=== PATIENT | female | born 1990 | race Caucasian/White ===

== ENCOUNTER 2017-12-04 18:30 | Emergency (ER) | payer OTHER ==
--- NOTE | 2017-12-04 20:11 | EDM.PDOC ---
ED HPI GENERAL MEDICAL PROBLEM - General Chief Complaint: General Stated Complaint: PT DIZZY Time Seen by Provider: 12/04/17 20:06 Source of Information: Reports: Patient History Limitations: Reports: No Limitations - History of Present Illness INITIAL COMMENTS - FREE TEXT/NARRATIVE: HISTORY AND PHYSICAL: []27-year-old female presenting with concerns over dizziness 2 days History of Present Illness: []Further discussion reveals some coughing runny nose she denies any other symptoms Review of Systems: As per history of present illness and below otherwise all systems reviewed and negative. Past medical history: As per history of present illness and as reviewed below otherwise noncontributory. Surgical history: As per history of present illness and as reviewed below otherwise noncontributory. Social history: No reported history of drug or alcohol abuse. Family history: As per history of present illness and as reviewed below otherwise noncontributory. Physical exam: Alert and oriented female answering questions appropriately speaking in full sentences without any shortness of breath HEENT: Atraumatic, normocehpalic, pupils reactive, negative for conjunctival pallor or scleral icterus, mucous membranes moist, throat clear, neck supple, nontender, trachea midline. Tympanic membrane on the left is bulging pustular material present Lungs: Clear to auscultation, breath sounds equal bilaterally, chest non tender. Shallow breath sounds were noted Heart: S1S2, regular, negative for clicks, rubs, or JVD. Abdomen: Soft, nondistended, nontender. Negative for masses or hepatossplenmegaly. Negative for costovertebral tenderness. Pelvis: Stable nontender. Genitourinary: Deferred. Rectal: Deferred Extremities: Atraumatic, negative for cords or calf pain. Neurovascular unremarkable. Neuro: Awake, alert, oriented. Cranial nerves II through XII unremarkable. Cerebellum unremarkable. Motor and sensory unremarkable throughout. Exam nonfocal. Chest chest with the patient that she does not have influenza Diagnostics: [Influenza] Therapeutics: [] Impression: [Otitis media on right Vertigo] Plan: [Amoxicillin Antivert Tylenol alternating with Motrin as needed for discomfort as discussed] Definitive disposition and diagnosis as appropriate pending reevaluation and review of above. Onset: Gradual Duration: Day(s): (HISTORY AND PHYSICAL:) Location: Reports: Head no pain Pain Score (Numeric/FACES): 0 - Related Data Allergies Allergy/AdvReac Type Severity Reaction Status Date / Time ciprofloxacin [From Cipro] Allergy Hives Verified 12/04/17 19:32 Home Meds: Home Meds Amoxicillin 875 mg PO BID #14 tab 12/04/17 [Rx] Meclizine [Antivert] 25 mg PO TID PRN #21 tab 12/04/17 [Rx] ED ROS GENERAL - Review of Systems Review Of Systems: ROS reveals no pertinent complaints other than HPI. ED EXAM, GENERAL - Physical Exam Exam: See Below (See dictation) Course - Vital Signs Last Recorded V/S: Last Vital Signs Temp 36.7 C 12/04/17 19:32 Pulse 83 12/04/17 19:32 Resp 18 12/04/17 19:32 BP 137/83 12/04/17 19:32 Pulse Ox 98 12/04/17 19:32 Departure - Departure Time of Disposition: 20:57 Disposition: Home, Self-Care 01 Condition: Good Clinical Impression: Vertigo Otitis media Qualifiers: Otitis media type: unspecified Chronicity: acute Qualified Code(s): H66.90 - Otitis media, unspecified, unspecified ear - Discharge Information Prescriptions: Amoxicillin 875 mg PO BID #14 tab Meclizine [Antivert] 25 mg PO TID PRN #21 tab PRN Reason: Dizziness Referrals: PCP,None [Primary Care Provider] - Forms: ED Department Discharge Additional Instructions: The following information is given to patients seen in the emergency department who are being discharged to home. This information is to outline your options for follow-up care. We provide all patients seen in our emergency department with a follow-up referral. The need for follow-up, as well as the timing and circumstances, are variable depending upon the specifics of your emergency department visit. If you don't have a primary care physician on staff, we will provide you with a referral. We always advise you to contact your personal physician following an emergency department visit to inform them of the circumstance of the visit and for follow-up with them and/or the need for any referrals to a consulting specialist. The emergency department will also refer you to a specialist when appropriate. This referral assures that you have the opportunity for followup care with a specialist. All of these measure are taken in an effort to provide you with optimal care, which includes your followup. Under all circumstances we always encourage you to contact your private physician who remains a resource for coordinating your care. When calling for followup care, please make the office aware that this follow-up is from your recent emergency room visit. If for any reason you are refused follow-up, please contact the [facility] emergency department at and asked to speak to the emergency department charge nurse. Then found to have ear infection and vertigo EScription sent to [place] [facility] Tylenol alternating with Motrin as needed for discomfort and fever
== END 2017-12-04 21:12 | disposition home or self-care (01) ==
LOC: MW.ED 18:30
DX: R42 Dizziness and giddiness (principal); H66.91 Otitis media, unspecified, right ear; Z88.1 Allergy status to other antibiotic agents
CPT/HCPCS: 87804; 99282; 99283

== ENCOUNTER 2019-12-28 12:00 | Inpatient (IN) | payer OTHER ==
[2019-12-28] MEDS: Lactated Ringers 1,000 ML IV SCH (17:59)
[2019-12-28] MEDS ORDERED: Methylergonovine 0.2 MG/1 ML Amp IM PRN (18:18)
[2019-12-28] MEDS ORDERED: Carboprost Tromethamine 250 MCG/1 ML Amp IM PRN (18:18)
[2019-12-28] MEDS ORDERED: Sodium Chloride 0.9% 2.5 ML Syringe FLUSH PRN (18:18)
[2019-12-28] MEDS ORDERED: Water For Irrigation,Sterile 1,000 ML Container IRR PRN (18:18)
[2019-12-28] MEDS ORDERED: Misoprostol 25 MCG (1/4 of 100 MCG) Tab VAG PRN ×2 (18:18)
[2019-12-28] MEDS ORDERED: Sodium Chloride 0.9% 10 ML SDV IV PRN (18:18)
[2019-12-28] MEDS ORDERED: Lidocaine 1% 50 ML MDV INJECT PRN (18:18)
[2019-12-28] MEDS ORDERED: Nalbuphine 10 MG/1 ML Vial IVPUSH PRN (18:18)
[2019-12-28] MEDS ORDERED: Misoprostol 200 MCG Tab PO PRN (18:18)
[2019-12-28] MEDS ORDERED: Sodium Chloride 0.9% 10 ML Syringe FLUSH PRN (18:18)
[2019-12-28] MEDS ORDERED: Tranexamic Acid 1,000 MG in Sodium Chloride 0.9% 100 ML IV PRN (18:18)
[2019-12-28] MEDS ORDERED: Terbutaline 1 MG/ML SDV SUBCUT PRN (18:18)
[2019-12-28] MEDS ORDERED: Oxytocin/0.9 % Sodium Chloride 30 UNIT/500 ML BAG IV SCH ×2 (18:30)
[2019-12-28 18:41] LABS: BLOOD UREA NITROGEN,BUN 9 mg/dL (7.0-18.0); CARBON DIOXIDE,CO2 20.5 mmol/L (21.0-32.0); CHLORIDE,CL 103 mmol/L (98-107); GLUCOSE RANDOM 127 mg/dL (74-106); POTASSIUM,K 3.9 mmol/L (3.5-5.1); SODIUM,NA 138 mmol/L (136-145)
[2019-12-29] MEDS: Butorphanol 1 MG/ML SDV IVPUSH PRN ×3 (00:28→03:55)
[2019-12-29] MEDS ORDERED: Ropivacaine HCl/PF 100 ML ONE (06:05)
[2019-12-29] MEDS ORDERED: fentaNYL 100 MCG/2 ML SDV ONE ×3 (06:05→12:23)
--- NOTE | 2019-12-29 06:26 | PCM.PREANE ---
Preanesthetic Assessment - Anesthesia/Transfusion/Family Hx Anesthesia History: No Prior Anesthesia Family History of Anesthesia Reaction: No - Physical Assessment NPO Status Date: 12/28/19 NPO Status Time: 17:00 Height: 1.68 m Weight: 132.562 kg ASA Class: 2 - Lab Values: Laboratory Last Values WBC 10.06 K/uL (4.0-11.0) 12/28/19 17:59 RBC 4.04 M/uL (4.30-5.90) L 12/28/19 17:59 Hgb 13.0 g/dL (12.0-16.0) 12/28/19 17:59 Hct 38.3 % (36.0-46.0) 12/28/19 17:59 MCV 94.8 fL (80.0-98.0) 12/28/19 17:59 MCH 32.2 pg (27.0-32.0) H 12/28/19 17:59 MCHC 33.9 g/dL (31.0-37.0) 12/28/19 17:59 RDW Std Deviation 43.1 fl (28.0-62.0) 12/28/19 17:59 RDW Coeff of Melanie 13 % (11.0-15.0) 12/28/19 17:59 Plt Count 246 K/uL (150-400) 12/28/19 17:59 MPV 10.70 fL (7.40-12.00) 12/28/19 17:59 Nucleated RBC % 0.0 /100WBC 12/28/19 17:59 Nucleated RBCs # 0 K/uL 12/28/19 17:59 Sodium 138 mmol/L (136-145) 12/28/19 17:59 Potassium 3.9 mmol/L (3.5-5.1) 12/28/19 17:59 Chloride 103 mmol/L (98-107) 12/28/19 17:59 Carbon Dioxide 20.5 mmol/L (21.0-32.0) L 12/28/19 17:59 BUN 9 mg/dL (7.0-18.0) 12/28/19 17:59 Creatinine 0.5 mg/dL (0.6-1.0) L 12/28/19 17:59 Est Cr Clr Drug Dosing 155.41 mL/min 12/28/19 17:59 Estimated GFR (MDRD) > 60.0 ml/min 12/28/19 17:59 Glucose 127 mg/dL (74-106) H 12/28/19 17:59 Uric Acid 3.2 mg/dL (2.6-7.2) 12/28/19 17:59 Calcium 9.1 mg/dL (8.5-10.1) 12/28/19 17:59 Total Bilirubin 0.2 mg/dL (0.2-1.0) 12/28/19 17:59 AST 18 IU/L (15-37) 12/28/19 17:59 ALT 21 IU/L (14-63) 12/28/19 17:59 Alkaline Phosphatase 129 U/L (46-116) H 12/28/19 17:59 Total Protein 7.3 g/dL (6.4-8.2) 12/28/19 17:59 Albumin 2.8 g/dL (3.4-5.0) L 12/28/19 17:59 Globulin 4.5 g/dL (2.6-4.0) H 12/28/19 17:59 Albumin/Globulin Ratio 0.6 (0.9-1.6) L 12/28/19 17:59 Ur Random Creatinine 128.9 mg/dL 12/29/19 00:30 U Random Total Protein 21.7 mg/dL (<11.9) H 12/29/19 00:30 Protein/Creatinin Ratio 0.2 12/29/19 00:30 Blood Type A POSITIVE 12/28/19 17:59 Antibody Screen NEGATIVE 12/28/19 17:59 - Allergies Allergies/Adverse Reactions: Allergies Allergy/AdvReac Type Severity Reaction Status Date / Time ciprofloxacin [From Cipro] Allergy Hives Verified 12/04/17 19:32 - Acknowledgements Anesthesia Type Planned: Epidural Pt an Appropriate Candidate for the Planned Anesthesia: Yes Alternatives and Risks of Anesthesia Discussed w Pt/Guardian: Yes Pt/Guardian Understands and Agrees with Anesthesia Plan: Yes PreAnesthesia Questionnaire HEENT History: Reports: None Cardiovascular History: Reports: None Respiratory History: Reports: None Gastrointestinal History: Reports: None Genitourinary History: Reports: None Musculoskeletal History: Reports: None Neurological History: Reports: None Psychiatric History: Reports: None Endocrine/Metabolic History: Reports: None Hematologic History: Reports: None Immunologic History: Reports: None Oncologic (Cancer) History: Reports: None Dermatologic History: Reports: None - Infectious Disease History Infectious Disease History: Reports: None - SUBSTANCE USE Tobacco Use Within Last Twelve Months: No Recreational Drug Use History: No - HOME MEDS Home Medications: Home Meds Amoxicillin 875 mg PO BID #14 tab 12/04/17 [Rx] Meclizine [Antivert] 25 mg PO TID PRN #21 tab 12/04/17 [Rx] - CURRENT (IN HOUSE) MEDS Current Meds: Current Medications Butorphanol Tartrate (Stadol) 1 mg IVPUSH Q1H PRN PRN Reason: Pain Last Admin: 12/29/19 03:55 Dose: 1 mg Carboprost Tromethamine (Hemabate Ds) 250 mcg IM ASDIRECTED PRN PRN Reason: Post Hemorrhage Lactated Ringer's (Ringers, Lactated) 1,000 mls @ 150 mls/hr IV ASDIRECTED KRISTEN Last Admin: 12/28/19 17:59 Dose: 150 mls/hr Oxytocin/Sodium Chloride (Oxytocin 30 Unit/500 Ml-Ns) 30 unit in 500 mls @ 999 mls/hr IV TITRATE KRISTEN Oxytocin/Sodium Chloride (Oxytocin 30 Unit/500 Ml-Ns) 30 unit in 500 mls @ 2 mls/hr IV TITRATE KRISTEN; Protocol Tranexamic Acid 1,000 mg/ (Sodium Chloride) 110 mls @ 660 mls/hr IV ONETIME PRN PRN Reason: Bleeding Lidocaine HCl (Xylocaine 1%) 50 ml INJECT ONETIME PRN PRN Reason: Laceration repair Methylergonovine Maleate (Methergine) 0.2 mg IM ASDIRECTED PRN PRN Reason: Post Hemorrhage Misoprostol (Cytotec) 200 mcg PO ONETIME PRN PRN Reason: Post Hemorrhage Misoprostol (Cytotec) 25 mcg VAG ONETIME PRN PRN Reason: Cervical Ripening Last Admin: 12/28/19 19:33 Dose: 25 mcg Misoprostol (Cytotec) 25 mcg VAG Q4H PRN PRN Reason: Cervical Ripening Nalbuphine HCl (Nubain) 10 mg IVPUSH Q1H PRN PRN Reason: Pain (severe 7-10) Sodium Chloride (Saline Flush) 10 ml FLUSH ASDIRECTED PRN PRN Reason: Keep Vein Open Sodium Chloride (Saline Flush) 2.5 ml FLUSH ASDIRECTED PRN PRN Reason: Keep Vein Open Sodium Chloride (Normal Saline) 10 ml IV ASDIRECTED PRN PRN Reason: IV Use Sterile Water (Sterile Water For Irrigation) 1,000 ml IRR ASDIRECTED PRN PRN Reason: delivery Terbutaline Sulfate (Brethine) 0.25 mg SUBCUT ASDIRECTED PRN PRN Reason: Tacysystole
--- NOTE | 2019-12-29 06:29 | PCM.PRNOTE ---
- Free Text/Narrative Note: Anes Note Patient requests epidural for L&D. Sitting position, Level L3-L4 midline apporach. Sterile technique. Chloraprep scrub to lumbar area. Sterile fenestrated drape applied. Epidural space easily achieved single attempt with ease using EVERT technique. EVERT at 5 cm. Cath threaded 5 cm with ease. Cath secured at skin using sterile clear adhesive dressing. Test 0615 3 cc 1.5% lido with epi negative. 0618 Load 10 cc 0.2% ropivicaine with 1 mcg cc fentanyl in slow divided doses. 0623 Pump started using 90 cc same solution. Rate is 8 cc hr with 6 cc q 20 min prn bolus. Augusto well. Time with patient [id number] Anderson Mtoa LOCOMOTIVE SUPERVISOR
[2019-12-29] MEDS: Lactated Ringers 1,000 ML IV SCH ×4 (06:31→21:22)
[2019-12-29] MEDS ORDERED: Bupivacaine 0.5% 10 ML SDV ONE (11:41)
[2019-12-29] MEDS ORDERED: Terbutaline 1 MG/ML SDV SUBCUT ONE (11:42)
[2019-12-29] MEDS ORDERED: ceFAZolin 2 GM in Premix Bag 1 BAG IV ONE (11:42)
[2019-12-29] MEDS ORDERED: ceFAZolin 1 GM Vial ONE (11:50)
[2019-12-29] MEDS ORDERED: Ondansetron 4 MG/2 ML SDV ONE (11:50)
[2019-12-29] MEDS ORDERED: Oxytocin 10 Units/1 ML SDV ONE (11:50)
[2019-12-29] MEDS ORDERED: Sodium Chloride 0.9% 20 ML ONE (11:50)
[2019-12-29] MEDS ORDERED: Midazolam 1 MG/ML 2 ML SDV ONE (12:00)
[2019-12-29] MEDS ORDERED: Morphine PF 10 MG/10 ML SDV ONE (12:03)
[2019-12-29] MEDS ORDERED: fentaNYL 100 MCG/2 ML SDV IVPUSH PRN (12:04)
[2019-12-29] MEDS ORDERED: Acetaminophen/oxyCODONE 325-5 MG Tab PO PRN ×2 (12:04→12:51)
[2019-12-29] MEDS ORDERED: Nalbuphine 10 MG/1 ML Vial IVPUSH PRN (12:04)
[2019-12-29] MEDS ORDERED: Octyl 2-Cyanoacrylate 1 Tube ONE (12:14)
[2019-12-29] MEDS ORDERED: Tranexamic Acid 1,000 MG in Sodium Chloride 0.9% 100 ML IV PRN (12:51)
[2019-12-29] MEDS ORDERED: Lanolin 100% Cream 7 GM Tube TOP PRN (12:51)
[2019-12-29] MEDS ORDERED: Misoprostol 200 MCG Tab RECTAL PRN (12:51)
[2019-12-29] MEDS ORDERED: Bisacodyl 10 MG Supp RECTAL PRN (12:51)
[2019-12-29] MEDS ORDERED: diphenhydrAMINE 50 MG/ML SDV IVPUSH PRN (12:51)
[2019-12-29] MEDS ORDERED: Ondansetron 4 MG/2 ML SDV IVPUSH PRN (12:51)
[2019-12-29] MEDS ORDERED: Oxytocin 10 Units/1 ML SDV IM PRN (12:51)
--- NOTE | 2019-12-29 12:56 | PCM.OPNOTE ---
- General Post-Op/Procedure Note Date of Surgery/Procedure: 12/29/19 Operative Procedure(s): primary low transverse Findings: Liveborn female 9/9 weight 3170 grams, normal pelvis, body cord noted.direct OP position Pre Op Diagnosis: 39 4/7 weeks, gestational hypertension, abnormal heart tones. Post-Op Diagnosis: Same Anesthesia Technique: Epidural Primary Surgeon: Jasmyne Smith Anesthesia Provider: Kenneth Tesfaye Colliery Clerk: Kenneth Stanley Pathology: placenta to pathology. Fluid Replacement, Intraop: 1,000 EBL in mLs: 500 Complications: None Known Condition: Good
[2019-12-29] MEDS ORDERED: Oxytocin/Lactated Ringers 30 UNIT/500 ML BAG IV SCH (13:00)
[2019-12-29] MEDS ORDERED: Ketorolac 15 MG/ML SDV ONE (13:01)
[2019-12-29] MEDS: Ketorolac 30 MG/ML SDV IVPUSH SCH ×2 (13:14→19:21)
--- NOTE | 2019-12-29 13:16 | PCM.POSTAN ---
POST ANESTHESIA ASSESSMENT - MENTAL STATUS Mental Status: Alert - RESPIRATORY Respiratory Status: Respiratory Rate WNL - CARDIOVASCULAR CV Status: Pulse Rate WNL - GASTROINTESTINAL GI Status: No Symptoms - POST OP HYDRATION Hydration Status: Adequate & Stable
[2019-12-29] MEDS: Docusate Sodium 100 MG Cap PO SCH (21:22)
--- NOTE | 2019-12-29 22:35 | OR ---
SURGEON: Jasmyne Smith M.D. DATE OF PROCEDURE: 12/29/2019 PREOPERATIVE DIAGNOSES: 38-3/7-week intrauterine , gestational hypertension, abnormal heart tones. POSTOPERATIVE DIAGNOSES: 38-3/7-week intrauterine , gestational hypertension, abnormal heart tones. PROCEDURE: Primary low transverse section. PRIMARY SURGEON: Jasmyne Smith M.D. ANESTHESIA: Epidural. ESTIMATED BLOOD LOSS: Less than 500 mL. FLUIDS: 1000 mL crystalloid. FINDINGS: Liveborn female. scores 9 and 9. Weighing 3170 g. Body cord was noted. Direct OP position. Normal-appearing uterus, tubes, and ovaries. COMPLICATIONS: None known. DISPOSITION: Stable to recovery. BRIEF HISTORY: This is a 29-year-old female, G1, P0. She presents with elevated blood pressures on multiple readings in the clinic. She has had a negative preeclamptic evaluation. Due to persistently elevated blood pressures, I have recommended proceeding with induction of labor. She received 2 doses of Cytotec. By morning, she was 3 cm, 90%. Artificial rupture of membranes was performed. Intrauterine pressure catheter was placed. Thick meconium was noted and she was started on Pitocin. She had category 1 heart tones with developing variable deceleration. She received 500 mL of amnioinfusion and then had recurrent variable with late component and therefore Pitocin was discontinued. The patient was repositioned, oxygen was placed, and despite these maneuvers, continued to have heart tones with episodes down into the 40s to 60s. Therefore, we discontinued induction of labor, and I recommended proceeding with a primary low transverse section with risks discussed including bleeding, infection, injury to bowel, bladder, blood vessels or other organs, risk of thromboembolic event, and risk of anesthesia. Understanding all these risks, she does desire to proceed. DESCRIPTION OF PROCEDURE: With the patient in left tilt position, under adequate epidural analgesia, the abdomen was prepped with chlorhexidine and draped in usual fashion for abdominal surgery. SCDs were in place. Awad catheter had been placed. An appropriate time-out was held. After documentation of adequate analgesia, a transverse curvilinear incision was made 2 cm cephalad from the pubic symphysis and carried through the subcutaneous tissue to the fascia, which was scored transversely in the midline. The fascial incision was extended laterally using curved Vance scissors. The fascia was elevated from the underlying rectus muscle and cephalad and caudad. The rectus muscles were bluntly in the midline. A finger was used to enter the peritoneal cavity. The incision was extended using blunt dissection. The Michael O retractor was placed. The visceroperitoneum over the lower uterine segment was incised to develop an adequate bladder flap. A transverse curvilinear incision was made with a scalpel over the lower uterine segment, and the finger was used to enter the uterine cavity, which was extended using blunt dissection. The amniotic membranes were ruptured and meconium was noted. The head was high in position and station remained in occiput posterior position. The head was delivered via the uterine cavity and the infant was bulb suctioned by nose and mouth with subsequent delivery of the infant's shoulders and body. Cord was noted to be completely wrapped around the body and beneath the arm. With delivery of the infant, the was vigorous. Therefore, cord blood was allowed to continue to flow for 1 minute, and then the cord was doubly clamped and cut, and the infant was handed to the nurse in attendance at delivery. The was a liveborn female, scores 9 and 9, weighing 3170 g. Cord blood was collected for cord ABGs as well as routine cord blood sampling. Pitocin was initiated after delivery of the infant to assist with delivery of the placenta. The placenta was removed by fundal massage and manual extraction. The uterus was cleaned with a dry laparotomy tape and the uterine incision was closed with a running lock suture of 0 Polysorb followed by an imbricating layer of 0 Polysorb. Posterior cul-de-sac and paracolic gutters were cleaned with a wet laparotomy tape. Tubes and ovaries were inspected and appeared normal. Uterine incision was inspected and was hemostatic. The Michael O retractor was removed. Final inspection of the uterine incision showed complete hemostasis, and the rectus muscle and peritoneum were loosely approximated in midline using a running mattress suture of 0 Polysorb. The posterior aspect of the fascia was inspected and areas of bleeding that were noted were cauterized. The fascial incision was closed with a running suture of 0 Polysorb. Subcutaneous tissue was closed with a running suture of 3-0 plain and the skin was closed with a running subcuticular suture of 3-0 Monocryl. Final sponge, needle, and instrument counts were reported as correct. There were no known complications. Mother and baby are in recovery in good condition. SILVIA GARCIA /[id number]
[2019-12-30] MEDS: Ketorolac 30 MG/ML SDV IVPUSH SCH ×3 (01:17→13:26)
--- NOTE | 2019-12-30 07:56 | PCM48HPAN ---
Post Anesthesia Note - EVALUATION WITHIN 48HRS OF ANESTHETIC Vital Signs in Normal Range: Yes Patient Participated in Evaluation: Yes Respiratory Function Stable: Yes Airway Patent: Yes Cardiovascular Function Stable: Yes Hydration Status Stable: Yes Pain Control Satisfactory: Yes Nausea and Vomiting Control Satisfactory: Yes Mental Status Recovered: Yes Vital Signs: Last Vital Signs Temp 36.5 C 12/30/19 04:00 Pulse 82 12/30/19 04:00 Resp 16 12/30/19 06:00 BP 105/57 L 12/30/19 04:00 Pulse Ox 97 12/30/19 06:00
--- NOTE | 2019-12-30 08:39 | PCM.PNPP ---
- General Info Date of Service: 12/30/19 Functional Status: Reports: Pain Controlled, Tolerating Diet, Ambulating, Urinating - Review of Systems General: Reports: No Symptoms HEENT: Reports: No Symptoms Pulmonary: Reports: No Symptoms Cardiovascular: Reports: No Symptoms Gastrointestinal: Reports: No Symptoms Genitourinary: Reports: No Symptoms Musculoskeletal: Reports: No Symptoms Skin: Reports: No Symptoms Neurological: Reports: No Symptoms Psychiatric: Reports: No Symptoms - General Info Date of Service: 12/30/19 - Patient Data Vital Signs - Most Recent: Last Vital Signs Temp 36.5 C 12/30/19 04:00 Pulse 73 12/30/19 08:00 Resp 17 12/30/19 08:00 BP 105/57 L 12/30/19 04:00 Pulse Ox 99 12/30/19 08:00 Weight - Most Recent: 132.562 kg I&O - Last 24 Hours: Intake & Output 12/29/19 12/30/19 12/30/19 22:59 06:59 14:59 Intake Total 900 1437 Output Total 1800 1500 Balance -900 -63 Lab Results - Last 24 Hours: Laboratory Results - last 24 hr 12/29/19 12/30/19 Range/Units 12:00 05:46 Hgb 9.3 L (12.0-16.0) g/dL Hct 27.7 L (36.0-46.0) % Cord ABG pH 7.441 H (7.18-7.38) Cord ABG Base Excess -4 (-10--2) Cord VBG pH 7.415 (7.25-7.45) Cord VBG Base Excess -4 (-10--2) Med Orders - Current: Current Medications Bisacodyl (Dulcolax) 10 mg RECTAL ONETIME PRN PRN Reason: Constipation Diphenhydramine HCl (Benadryl) 25 mg IVPUSH Q6H PRN PRN Reason: Itching or Nausea Docusate Sodium (Colace) 100 mg PO BID K[facility]ST[facility] Last Admin: 12/29/19 21:22 Dose: 100 mg Emollient Ointment (Lansinoh Hpa) 0 gm TOP ASDIRECTED PRN PRN Reason: Sore Nipples Fentanyl (Sublimaze) 50 mcg IVPUSH Q5M PRN PRN Reason: Pain (severe 7-10) Stop: 12/30/19 12:04 Lactated Ringer's (Ringers, Lactated) 1,000 mls @ 125 mls/hr IV ASDIRECTED [facility] Last Admin: 12/29/19 21:22 Dose: 125 mls/hr Oxytocin/Lactated Ringer's (Pitocin In Lr 30 Units/500 Ml) 30 unit in 500 mls @ 999 mls/hr IV TITRATE [facility]; Protocol Tranexamic Acid 1,000 mg/ (Sodium Chloride) 110 mls @ 660 mls/hr IV ONETIME PRN PRN Reason: Bleeding Ibuprofen (Motrin) 800 mg PO Q8H PRN PRN Reason: mild pain or fever Ketorolac Tromethamine (Toradol) 30 mg IVPUSH Q6H [facility] Stop: 12/30/19 13:01 Last Admin: 12/30/19 07:36 Dose: 30 mg Misoprostol (Cytotec) 1,000 mcg RECTAL ONETIME PRN PRN Reason: excessive bleeding Nalbuphine HCl (Nubain) 2.5 mg IVPUSH Q3H PRN PRN Reason: Pruritis Stop: 12/30/19 12:04 Ondansetron HCl (Zofran) 4 mg IVPUSH Q4H PRN PRN Reason: Nausea/Vomiting Oxycodone/Acetaminophen (Percocet 325-5 Mg) 1 tab PO ONETIME PRN PRN Reason: Pain (moderate 4-6) Oxycodone/Acetaminophen (Percocet 325-5 Mg) 1 tab PO Q4H PRN PRN Reason: Pain (moderate 4-6) Oxycodone/Acetaminophen (Percocet 325-5 Mg) 2 tab PO Q4H PRN PRN Reason: Pain (moderate 4-6) Oxytocin (Pitocin) 10 unit IM ASDIRECTED PRN PRN Reason: Excessive Vaginal Bleeding Discontinued Medications Bupivacaine HCl (Sensorcaine-Mpf 0.5%) Confirm Administered Dose 20 ml .ROUTE .STK-MED ONE Stop: 12/29/19 11:42 Last Admin: 12/30/19 07:54 Dose: Not Given Butorphanol Tartrate (Stadol) 1 mg IVPUSH Q1H PRN PRN Reason: Pain Last Admin: 12/29/19 03:55 Dose: 1 mg Carboprost Tromethamine (Hemabate Ds) 250 mcg IM ASDIRECTED PRN PRN Reason: Post Hemorrhage Cefazolin Sodium (Ancef) Confirm Administered Dose 2 gm .ROUTE .STK-MED ONE Stop: 12/29/19 11:51 Fentanyl (Sublimaze) Confirm Administered Dose 100 mcg .ROUTE .STK-MED ONE Stop: 12/29/19 06:06 Last Admin: 12/30/19 07:54 Dose: Not Given Fentanyl (Sublimaze) Confirm Administered Dose 100 mcg .ROUTE .STK-MED ONE Stop: 12/29/19 12:24 Fentanyl (Sublimaze) Confirm Administered Dose 100 mcg .ROUTE .STK-MED ONE Stop: 12/29/19 12:24 Lactated Ringer's (Ringers, Lactated) 1,000 mls @ 150 mls/hr IV ASDIRECTED [facility] Last Admin: 12/29/19 11:22 Dose: 150 mls/hr Oxytocin/Sodium Chloride (Oxytocin 30 Unit/500 Ml-Ns) 30 unit in 500 mls @ 999 mls/hr IV TITRATE KRISTEN Oxytocin/Sodium Chloride (Oxytocin 30 Unit/500 Ml-Ns) 30 unit in 500 mls @ 2 mls/hr IV TITRATE KRISTNE; Protocol Last Titration: 12/29/19 11:31 Dose: 0 munits/min, 0 mls/hr Tranexamic Acid 1,000 mg/ (Sodium Chloride) 110 mls @ 660 mls/hr IV ONETIME PRN PRN Reason: Bleeding Ropivacaine (Naropin 0.2%) Confirm Administered Dose 100 mls @ as directed .ROUTE .STK-MED ONE Stop: 12/29/19 06:06 Last Admin: 12/30/19 07:54 Dose: Not Given Cefazolin Sodium/Dextrose 2 gm (/ Premix) 50 mls @ 100 mls/hr IV ONETIME ONE Stop: 12/29/19 12:11 Sodium Chloride (Normal Saline) Confirm Administered Dose 20 mls @ as directed .ROUTE .STK-MED ONE Stop: 12/29/19 11:51 Ketorolac Tromethamine (Toradol) Confirm Administered Dose 15 mg .ROUTE .STK- MED ONE Stop: 12/29/19 13:02 Last Admin: 12/30/19 07:54 Dose: Not Given Lidocaine HCl (Xylocaine 1%) 50 ml INJECT ONETIME PRN PRN Reason: Laceration repair Methylergonovine Maleate (Methergine) 0.2 mg IM ASDIRECTED PRN PRN Reason: Post Hemorrhage Midazolam HCl (Versed 1 Mg/Ml) Confirm Administered Dose 2 mg .ROUTE .STK-MED ONE Stop: 12/29/19 12:01 Misoprostol (Cytotec) 200 mcg PO ONETIME PRN PRN Reason: Post Hemorrhage Misoprostol (Cytotec) 25 mcg VAG ONETIME PRN PRN Reason: Cervical Ripening Last Admin: 12/28/19 19:33 Dose: 25 mcg Misoprostol (Cytotec) 25 mcg VAG Q4H PRN PRN Reason: Cervical Ripening Morphine Sulfate (Duramorph Pf) Confirm Administered Dose 10 mg .ROUTE .STK-MED ONE Stop: 12/29/19 12:04 Nalbuphine HCl (Nubain) 10 mg IVPUSH Q1H PRN PRN Reason: Pain (severe 7-10) Octyl Cyanoacrylate (Dermabond Advance) Confirm Administered Dose 1 applic .ROUTE .STK-MED ONE Stop: 12/29/19 12:15 Last Admin: 12/30/19 07:54 Dose: Not Given Ondansetron HCl (Zofran) Confirm Administered Dose 4 mg .ROUTE .STK-MED ONE Stop: 12/29/19 11:51 Oxytocin (Pitocin) Confirm Administered Dose 30 unit .ROUTE .STK-MED ONE Stop: 12/29/19 11:51 Sodium Chloride (Saline Flush) 10 ml FLUSH ASDIRECTED PRN PRN Reason: Keep Vein Open Sodium Chloride (Saline Flush) 2.5 ml FLUSH ASDIRECTED PRN PRN Reason: Keep Vein Open Sodium Chloride (Normal Saline) 10 ml IV ASDIRECTED PRN PRN Reason: IV Use Sterile Water (Sterile Water For Irrigation) 1,000 ml IRR ASDIRECTED PRN PRN Reason: delivery Terbutaline Sulfate (Brethine) 0.25 mg SUBCUT ASDIRECTED PRN PRN Reason: Tacysystole Last Admin: 12/29/19 11:40 Dose: 0.25 mg Terbutaline Sulfate (Brethine) 0.25 mg SUBCUT ONETIME ONE Stop: 12/29/19 11:43 - Interaction Infant Disposition, : in Room with Family Interaction: Holding Infant Feeding: Attempted ; Nursed Fair/Poor Support Person: Significant Other - Recovery Exam Fundal Tone: Firm Fundal Level: At Umbilicus Fundal Placement: Midline Lochia Amount: Scant Lochia Color: Rubra/Red Perineum Description: Intact, Minimal Bruising/Swelling Episiotomy/Laceration: None Bladder Status: Voiding Urinary Elimination: Voided - Exam General: Alert, Oriented HEENT: Pupils Equal Neck: Supple Lungs: Clear to Auscultation, Normal Respiratory Effort Cardiovascular: Regular Rate, Regular Rhythm GI/Abdominal Exam: Normal Bowel Sounds, Soft, Non-Tender, No Distention Extremities: Normal Inspection, Non-Tender, No Pedal Edema Skin: Warm, Dry, Intact Wound/Incisions: Dressing Dry and Intact Neurological: No New Focal Deficit - Problem List & Annotations (1) Gestational hypertension SNOMED Code(s): 674359363 Code(s): O13.9 - GESTATIONAL HTN W/O SIGNIFICANT PROTEINURIA, UNSP TRIMESTER Status: Acute Current Visit: Yes (2) delivery delivered SNOMED Code(s): 693102419 Code(s): O82 - ENCOUNTER FOR DELIVERY WITHOUT INDICATION Status: Acute Current Visit: Yes (3) Abnormal heart rate or rhythm SNOMED Code(s): 939242858 Code(s): [id number] - Status: Acute Current Visit: Yes - Problem List Review Problem List Initiated/Reviewed/Updated: Yes - My Orders Last 24 Hours: My Active Orders 12/29/19 11:43 Verify Patient Consent Obtain [RC] ASDIRECTED 12/29/19 12:51 Patient Status [ADT] Routine Ambulate [RC] PER UNIT ROUTINE Antiembolic Devices [RC] PER UNIT ROUTINE Communication Order [RC] PER UNIT ROUTINE Communication Order [RC] PER UNIT ROUTINE Communication Order [RC] Per Unit Routine May Shower [RC] ASDIRECTED RT Incentive Spirometry [RC] Q2HWA Acetaminophen/oxyCODONE [Percocet 325-5 MG] 1 tab PO Q4H PRN Acetaminophen/oxyCODONE [Percocet 325-5 MG] 2 tab PO Q4H PRN Ibuprofen [Motrin] 800 mg PO Q8H PRN Lanolin [Lansinoh HPA] See Dose Instructions TOP ASDIRECTED PRN Ondansetron [Zofran] 4 mg IVPUSH Q4H PRN Oxytocin [Pitocin] 10 unit IM ASDIRECTED PRN Tranexamic Acid [Cyklokapron] 1,000 mg Sodium Chloride 0.9% [Normal Saline] 100 ml IV ONETIME bisacodyL [Dulcolax] 10 mg RECTAL ONETIME PRN diphenhydrAMINE [Benadryl] 25 mg IVPUSH Q6H PRN miSOPROStoL [Cytotec] 1,000 mcg RECTAL ONETIME PRN Abdominal Binder [OM.PC] Urgent Assess Lochia [WOMSER] Per Unit Routine Assess Uterine Involution [WOMSER] Per Unit Routine Breast Pump [WOMSER] Per Unit Routine Peripheral IV Discontinue [OM.PC] Routine Sequential Compression Device [OM.PC] Per Unit Routine Resuscitation Status Routine 12/29/19 12:52 Notify Provider Intake and Out [RC] ASDIRECTED Notify Provider Vital Signs [RC] ASDIRECTED 12/29/19 13:00 Ketorolac [Toradol] 30 mg IVPUSH Q6H Lactated Ringers [Ringers, Lactated] 1,000 ml IV ASDIRECTED Oxytocin/Lactated Ringers [Pitocin in LR 30 Units/500 ML] 30 unit in 500 ml IV TITRATE 12/29/19 21:00 Docusate Sodium [Colace] 100 mg PO BID 12/29/19 Dinner Regular Diet [DIET] - Assessment Assessment:: POD#1 after primary . Stable, minimal lochia. Has been up, tolerating diet. Working on breast feeding. - Plan Plan:: Discussed operative findings, encouraged ambulation today, may shower, remove dressing and DC iv after next dose of ketorolac.
[2019-12-30] MEDS: Docusate Sodium 100 MG Cap PO SCH ×2 (09:22→20:33)
[2019-12-30] MEDS: Ibuprofen 800 MG Tab PO PRN (20:31)
[2019-12-31] MEDS: Acetaminophen/oxyCODONE 325-5 MG Tab PO PRN ×3 (00:43→13:57)
[2019-12-31] MEDS: Ibuprofen 800 MG Tab PO PRN (07:32)
[2019-12-31] MEDS: Docusate Sodium 100 MG Cap PO SCH ×2 (07:33→08:38)
--- NOTE | 2019-12-31 12:39 | PCM.PNPP ---
- General Info Date of Service: 12/31/19 Functional Status: Reports: Pain Controlled, Tolerating Diet, Ambulating, Urinating - Review of Systems General: Reports: No Symptoms HEENT: Reports: No Symptoms Pulmonary: Reports: No Symptoms Cardiovascular: Reports: No Symptoms Gastrointestinal: Reports: No Symptoms Genitourinary: Reports: No Symptoms Musculoskeletal: Reports: No Symptoms Skin: Reports: No Symptoms Neurological: Reports: No Symptoms Psychiatric: Reports: No Symptoms - General Info Date of Service: 12/31/19 - Patient Data Vital Signs - Most Recent: Last Vital Signs Temp 36.4 C 12/31/19 08:00 Pulse 84 12/31/19 04:45 Resp 18 12/31/19 08:00 BP 123/74 12/31/19 08:00 Pulse Ox 98 12/31/19 08:00 Weight - Most Recent: 132.562 kg Lab Results - Last 24 Hours: Laboratory Results - last 24 hr 12/28/19 Range/Units 17:59 RPR Non-Reac (Non-Reac) Med Orders - Current: Current Medications Bisacodyl (Dulcolax) 10 mg RECTAL ONETIME PRN PRN Reason: Constipation Diphenhydramine HCl (Benadryl) 25 mg IVPUSH Q6H PRN PRN Reason: Itching or Nausea Docusate Sodium (Colace) 100 mg PO BID [facility] Last Admin: 12/31/19 08:38 Dose: Not Given Emollient Ointment (Lansinoh Hpa) 0 gm TOP ASDIRECTED PRN PRN Reason: Sore Nipples Lactated Ringer's (Ringers, Lactated) 1,000 mls @ 125 mls/hr IV ASDIRECTED [facility] Last Admin: 12/29/19 21:22 Dose: 125 mls/hr Oxytocin/Lactated Ringer's (Pitocin In Lr 30 Units/500 Ml) 30 unit in 500 mls @ 999 mls/hr IV TITRATE [facility]; Protocol Tranexamic Acid 1,000 mg/ (Sodium Chloride) 110 mls @ 660 mls/hr IV ONETIME PRN PRN Reason: Bleeding Ibuprofen (Motrin) 800 mg PO Q8H PRN PRN Reason: mild pain or fever Last Admin: 12/31/19 07:32 Dose: 800 mg Misoprostol (Cytotec) 1,000 mcg RECTAL ONETIME PRN PRN Reason: excessive bleeding Ondansetron HCl (Zofran) 4 mg IVPUSH Q4H PRN PRN Reason: Nausea/Vomiting Oxycodone/Acetaminophen (Percocet 325-5 Mg) 1 tab PO ONETIME PRN PRN Reason: Pain (moderate 4-6) Oxycodone/Acetaminophen (Percocet 325-5 Mg) 1 tab PO Q4H PRN PRN Reason: Pain (moderate 4-6) Oxycodone/Acetaminophen (Percocet 325-5 Mg) 2 tab PO Q4H PRN PRN Reason: Pain (moderate 4-6) Last Admin: 12/31/19 08:37 Dose: 2 tab Oxytocin (Pitocin) 10 unit IM ASDIRECTED PRN PRN Reason: Excessive Vaginal Bleeding Discontinued Medications Bupivacaine HCl (Sensorcaine-Mpf 0.5%) Confirm Administered Dose 20 ml .ROUTE .STK-MED ONE Stop: 12/29/19 11:42 Last Admin: 12/30/19 07:54 Dose: Not Given Butorphanol Tartrate (Stadol) 1 mg IVPUSH Q1H PRN PRN Reason: Pain Last Admin: 12/29/19 03:55 Dose: 1 mg Carboprost Tromethamine (Hemabate Ds) 250 mcg IM ASDIRECTED PRN PRN Reason: Post Hemorrhage Cefazolin Sodium (Ancef) Confirm Administered Dose 2 gm .ROUTE .STK-MED ONE Stop: 12/29/19 11:51 Fentanyl (Sublimaze) Confirm Administered Dose 100 mcg .ROUTE .STK-MED ONE Stop: 12/29/19 06:06 Last Admin: 12/30/19 07:54 Dose: Not Given Fentanyl (Sublimaze) 50 mcg IVPUSH Q5M PRN PRN Reason: Pain (severe 7-10) Stop: 12/30/19 12:04 Fentanyl (Sublimaze) Confirm Administered Dose 100 mcg .ROUTE .STK-MED ONE Stop: 12/29/19 12:24 Fentanyl (Sublimaze) Confirm Administered Dose 100 mcg .ROUTE .STK-MED ONE Stop: 12/29/19 12:24 Lactated Ringer's (Ringers, Lactated) 1,000 mls @ 150 mls/hr IV ASDIRECTED [facility] Last Admin: 02/27/20 11:22 Dose: 150 mls/hr Oxytocin/Sodium Chloride (Oxytocin 30 Unit/500 Ml-Ns) 30 unit in 500 mls @ 999 mls/hr IV TITRATE KRISTEN Oxytocin/Sodium Chloride (Oxytocin 30 Unit/500 Ml-Ns) 30 unit in 500 mls @ 2 mls/hr IV TITRATE [facility]; Protocol Last Titration: 12/29/19 11:31 Dose: 0 munits/min, 0 mls/hr Tranexamic Acid 1,000 mg/ (Sodium Chloride) 110 mls @ 660 mls/hr IV ONETIME PRN PRN Reason: Bleeding Ropivacaine (Naropin 0.2%) Confirm Administered Dose 100 mls @ as directed .ROUTE .STK-MED ONE Stop: 12/29/19 06:06 Last Admin: 12/30/19 07:54 Dose: Not Given Cefazolin Sodium/Dextrose 2 gm (/ Premix) 50 mls @ 100 mls/hr IV ONETIME ONE Stop: 12/29/19 12:11 Sodium Chloride (Normal Saline) Confirm Administered Dose 20 mls @ as directed .ROUTE .STK-MED ONE Stop: 12/29/19 11:51 Ketorolac Tromethamine (Toradol) 30 mg IVPUSH Q6H [facility] Stop: 12/30/19 13:01 Last Admin: 12/30/19 13:26 Dose: 30 mg Ketorolac Tromethamine (Toradol) Confirm Administered Dose 15 mg .ROUTE .STK- MED ONE Stop: 12/29/19 13:02 Last Admin: 12/30/19 07:54 Dose: Not Given Lidocaine HCl (Xylocaine 1%) 50 ml INJECT ONETIME PRN PRN Reason: Laceration repair Methylergonovine Maleate (Methergine) 0.2 mg IM ASDIRECTED PRN PRN Reason: Post Hemorrhage Midazolam HCl (Versed 1 Mg/Ml) Confirm Administered Dose 2 mg .ROUTE .STK-MED ONE Stop: 12/29/19 12:01 Misoprostol (Cytotec) 200 mcg PO ONETIME PRN PRN Reason: Post Hemorrhage Misoprostol (Cytotec) 25 mcg VAG ONETIME PRN PRN Reason: Cervical Ripening Last Admin: 12/28/19 19:33 Dose: 25 mcg Misoprostol (Cytotec) 25 mcg VAG Q4H PRN PRN Reason: Cervical Ripening Morphine Sulfate (Duramorph Pf) Confirm Administered Dose 10 mg .ROUTE .STK-MED ONE Stop: 12/29/19 12:04 Nalbuphine HCl (Nubain) 10 mg IVPUSH Q1H PRN PRN Reason: Pain (severe 7-10) Nalbuphine HCl (Nubain) 2.5 mg IVPUSH Q3H PRN PRN Reason: Pruritis Stop: 12/30/19 12:04 Octyl Cyanoacrylate (Dermabond Advance) Confirm Administered Dose 1 applic .ROUTE .STK-MED ONE Stop: 12/29/19 12:15 Last Admin: 12/30/19 07:54 Dose: Not Given Ondansetron HCl (Zofran) Confirm Administered Dose 4 mg .ROUTE .STK-MED ONE Stop: 12/29/19 11:51 Oxytocin (Pitocin) Confirm Administered Dose 30 unit .ROUTE .STK-MED ONE Stop: 12/29/19 11:51 Sodium Chloride (Saline Flush) 10 ml FLUSH ASDIRECTED PRN PRN Reason: Keep Vein Open Sodium Chloride (Saline Flush) 2.5 ml FLUSH ASDIRECTED PRN PRN Reason: Keep Vein Open Sodium Chloride (Normal Saline) 10 ml IV ASDIRECTED PRN PRN Reason: IV Use Sterile Water (Sterile Water For Irrigation) 1,000 ml IRR ASDIRECTED PRN PRN Reason: delivery Terbutaline Sulfate (Brethine) 0.25 mg SUBCUT ASDIRECTED PRN PRN Reason: Tacysystole Last Admin: 12/29/19 11:40 Dose: 0.25 mg Terbutaline Sulfate (Brethine) 0.25 mg SUBCUT ONETIME ONE Stop: 12/29/19 11:43 - Infant Interaction Infant Disposition, : in Room with Family Interaction: Holding Infant Feeding: Attempted ; Nursed Fair/Poor Support Person: Significant Other - Recovery Exam Fundal Tone: Firm Fundal Level: At Umbilicus Fundal Placement: Midline Lochia Amount: Scant Lochia Color: Rubra/Red Perineum Description: Intact, Minimal Bruising/Swelling Episiotomy/Laceration: Approximated Bladder Status: Voiding Urinary Elimination: Voided - Exam General: Alert, Oriented HEENT: Pupils Equal Neck: Supple Lungs: Clear to Auscultation, Normal Respiratory Effort Cardiovascular: Regular Rate, Regular Rhythm GI/Abdominal Exam: Normal Bowel Sounds, Soft, Non-Tender, No Organomegaly, No Distention, No Mass Extremities: Normal Inspection, Non-Tender. No: No Pedal Edema (1+ equal bilaterally) Skin: Warm, Dry, Intact Wound/Incisions: Healing Well Neurological: No New Focal Deficit Psy/Mental Status: Alert, Normal Affect, Normal Mood - Problem List & Annotations (1) Gestational hypertension SNOMED Code(s): 392603538 Code(s): O13.9 - GESTATIONAL HTN W/O SIGNIFICANT PROTEINURIA, UNSP TRIMESTER Status: Acute Current Visit: Yes (2) delivery delivered SNOMED Code(s): 652687052 Code(s): O82 - ENCOUNTER FOR DELIVERY WITHOUT INDICATION Status: Acute Current Visit: Yes (3) Abnormal heart rate or rhythm SNOMED Code(s): 962408471 Code(s): QJP6278 - Status: Acute Current Visit: Yes - Problem List Review Problem List Initiated/Reviewed/Updated: Yes - Assessment Assessment:: POD#2 after primary . Stable, minimal lochia. Has been up, tolerating diet. Would like to go home today. - Plan Plan:: Discharge instruction/precautions reviewed. Dismiss to home today.
== END 2019-12-31 14:10 | disposition home or self-care (01) | DRG 788 ==
LOC: MW.OB 12:00 → OBSVTOIN 12-29 12:00 → MW.OB 12-29 16:10
PROVIDERS: ADMIT Obstetrics & Gynecology; ATTEND Obstetrics & Gynecology
PROC: 10D00Z1 Extraction of Products of Conception, Low, Open Approach (ICD-10-PCS; principal; 2019-12-29)
PROC: 3E0E7GC Introduction of Other Therapeutic Substance into Products of Conception, Via Natural or Artificial Opening (ICD-10-PCS; 2019-12-29)
PROC: 10H07YZ Insertion of Other Device into Products of Conception, Via Natural or Artificial Opening (ICD-10-PCS; 2019-12-29)
PROC: 10907ZC Drainage of Amniotic Fluid, Therapeutic from Products of Conception, Via Natural or Artificial Opening (ICD-10-PCS; 2019-12-29)
PROC: 3E0P7VZ Introduction of Hormone into Female Reproductive, Via Natural or Artificial Opening (ICD-10-PCS; 2019-12-29)
DX: O13.4 Gestational [pregnancy-induced] hypertension without significant proteinuria, complicating childbirth (principal); O99.214 Obesity complicating childbirth; O76 Abnormality in fetal heart rate and rhythm complicating labor and delivery; O77.0 Labor and delivery complicated by meconium in amniotic fluid; E66.01 Morbid (severe) obesity due to excess calories; Z79.899 Other long term (current) drug therapy; Z3A.39 39 weeks gestation of pregnancy; Z37.0 Single live birth
CPT/HCPCS: 01967; 36415; 51702; 59020; 59025; 80053; 82570; 82803; 84156; 84550; 85014; 85018; 85027; 86592; 86593; 86850; 86900; 86901; A9270-GY; J0595; J0690; J1885; J2250; J2270; J2405; J2590; J3010; J3105; J7120